=== PATIENT | male | born 1965 | race Caucasian/White ===

== ENCOUNTER 2017-10-19 21:31 | Emergency (ER) | payer MEDICARE, OTHER ==
[2017-10-20] MEDS: KETOROLAC 30 MG INJ IV (02:33)
[2017-10-20] MEDS: SOD CHLORIDE 0.9% 1,000 ML IV (02:34)
[2017-10-20] MEDS: predniSONE 20 MG TAB PO (02:40)
[2017-10-20 02:55] LABS: ADD MAN DIFF? NO
[2017-10-20 03:03] LABS: WHITE BLOOD COUNT 10.4 10^3/ul (4.8-10.8)
[2017-10-20 03:03] LABS: BASOPHILS % 0.3 % (0.0-2.0); EOSINOPHILS # 0.1 10^3/ul (0.0-0.5); EOSINOPHILS % 1.1 % (0.0-7.0); HEMATOCRIT 43.7 % (42.0-52.0); HEMOGLOBIN 14.1 g/dl (14.0-18.0); LYMPHOCYTES # 3.9 10^3/ul (0.8-2.9); LYMPHOCYTES % 37.1 % (15.0-51.0); MEAN CORPUSCULAR HEMOGLOBIN 27.1 pg (29.0-33.0); MEAN CORPUSCULAR HGB CONC 32.3 g/dl (32.0-37.0); MEAN CORPUSCULAR VOLUME 83.9 fl (82.0-101.0); MEAN PLATELET VOLUME 10.8 fl (7.4-10.4); MONOCYTE # 0.8 10^3/ul (0.3-0.9); MONOCYTES % 7.8 % (0.0-11.0); NEUTROPHIL # 5.5 10^3/ul (1.6-7.5); NEUTROPHILS % 52.6 % (39.0-77.0); PLATELET COUNT 216 10^3/UL (140-415); RED BLOOD COUNT 5.21 10^6/ul (4.70-6.10)
[2017-10-20 03:20] LABS: ALANINE AMINOTRANSFERASE 53 IU/L (13-69); ALBUMIN 3.8 g/dl (3.3-4.9); ALBUMIN/GLOBULIN RATIO 1.02; ALKALINE PHOSPHATASE 72 IU/L (42-121); ANION GAP 20 (8-16); ASPARTATE AMINO TRANSFERASE 27 IU/L (15-46); BILIRUBIN,INDIRECT 0.2 mg/dl (0-1.1); BILIRUBIN,TOTAL 0.2 mg/dl (0.2-1.3); BLOOD UREA NITROGEN 18 mg/dl (7-20); CALCIUM 9.4 mg/dl (8.4-10.2); CARBON DIOXIDE 31 mmol/L (21-31); CHLORIDE 103 mmol/L (97-110); CREATININE 0.82 mg/dl (0.61-1.24); GLUCOSE 95 mg/dl (70-220); POTASSIUM 4.3 mmol/L (3.5-5.1); TOTAL PROTEIN 7.5 g/dl (6.1-8.1)
[2017-10-20] MEDS: IOHEXOL 300MG/ML 150 ML BTL (03:38)
[2017-10-20] MEDS: SOD CHLORIDE 0.9% 100 ML (03:38)
[2017-10-20 03:42] LABS: SODIUM 145 mmol/L (135-144)
== END 2017-10-20 05:20 | disposition home or self-care (01) ==
LOC: FTE 21:31
DX: K11.20 Sialoadenitis, unspecified (principal); I10 Essential (primary) hypertension
CPT/HCPCS: 70491; 80053; 85025; 96374; 99285-25

== ENCOUNTER 2018-05-13 07:37 | Observation (INO) | payer MEDICARE, OTHER ==
[2018-05-13 08:10] LABS: ADD MAN DIFF? NO
[2018-05-13 08:12] LABS: BASOPHILS % 0.3 % (0.0-2.0); EOSINOPHILS # 0.1 10^3/ul (0.0-0.5); EOSINOPHILS % 0.5 % (0.0-7.0); HEMATOCRIT 42.4 % (42.0-52.0); HEMOGLOBIN 13.6 g/dl (14.0-18.0); IMMATURE GRANS #M 0.03 10^3/ul; IMMATURE GRANS % (M) 0.3 %; LYMPHOCYTES # 4.1 10^3/ul (0.8-2.9); LYMPHOCYTES % 34.2 % (15.0-51.0); MEAN CORPUSCULAR HEMOGLOBIN 27.5 pg (29.0-33.0); MEAN CORPUSCULAR HGB CONC 32.1 g/dl (32.0-37.0); MEAN CORPUSCULAR VOLUME 85.8 fl (82.0-101.0); MEAN PLATELET VOLUME 11.1 fl (7.4-10.4); MONOCYTE # 1.3 10^3/ul (0.3-0.9); MONOCYTES % 10.5 % (0.0-11.0); NEUTROPHIL # 6.5 10^3/ul (1.6-7.5); NEUTROPHILS % 54.2 % (39.0-77.0); PLATELET COUNT 180 10^3/UL (140-415); RED BLOOD COUNT 4.94 10^6/ul (4.70-6.10); RED CELL DISTRIBUTION WIDTH 15.6 % (11.5-14.5)
[2018-05-13] MEDS: SOD CHLORIDE 0.9% 1,000 ML IV (08:28)
[2018-05-13 08:29] LABS: ALANINE AMINOTRANSFERASE 19 IU/L (13-69); ALBUMIN 3.6 g/dl (3.3-4.9); ALBUMIN/GLOBULIN RATIO 1.12; ALKALINE PHOSPHATASE 51 IU/L (42-121); ANION GAP 12 (8-16); ASPARTATE AMINO TRANSFERASE 21 IU/L (15-46); BILIRUBIN,INDIRECT 0.4 mg/dl (0-1.1); BILIRUBIN,TOTAL 0.4 mg/dl (0.2-1.3); BLOOD UREA NITROGEN 11 mg/dl (7-20); CALCIUM 8.4 mg/dl (8.4-10.2); CARBON DIOXIDE 25 mmol/L (21-31); CHLORIDE 110 mmol/L (97-110); CHOL/HDL RATIO 3.7 RATIO; CHOLESTEROL 291 mg/dl (100-200); CREATININE 0.54 mg/dl (0.61-1.24); GLUCOSE 101 mg/dl (70-220); HDL CHOLESTEROL 77 mg/dl (28-71); LDL CHOLESTEROL,CALCULATED 150 mg/dl; POTASSIUM 3.6 mmol/L (3.5-5.1); SODIUM 143 mmol/L (135-144); TOTAL PROTEIN 6.8 g/dl (6.1-8.1); TRIGLYCERIDES 318 mg/dl (0-149)
[2018-05-13 08:33] LABS: ADD UMIC YES; INR 0.96; PROTIME 12.9 Sec (11.9-14.9); UR ASCORBIC ACID NEGATIVE (NEGATIVE); UR BACTERIA MANY /HPF (NONE SEEN); UR BILIRUBIN (Dip) NEGATIVE (NEGATIVE); UR BLOOD (Dip) NEGATIVE (NEGATIVE); UR CLARITY SLIGHTLY CLOUDY (CLEAR); UR COLOR YELLOW (YELLOW); UR GLUCOSE (Dip) NEGATIVE (NEGATIVE); UR KETONES (Dip) NEGATIVE (NEGATIVE); UR LEUKOCYTE ESTERASE (Dip) 2+ Leu/ul (NEGATIVE); UR MUCUS FEW /HPF (NONE SEEN); UR NITRITE (Dip) NEGATIVE (NEGATIVE); UR RBC 5 /HPF (0-5); UR SPECIFIC GRAVITY (Dip) 1.014 (1.003-1.030); UR TOTAL PROTEIN (Dip) NEGATIVE (NEGATIVE); UR UROBILINOGEN (Dip) NEGATIVE (NEGATIVE); UR WBC 75 /HPF (0-5)
[2018-05-13 08:34] LABS: PARTIAL THROMBOPLASTIN TIME 25.7 Sec (25.0-35.0)
[2018-05-13 08:39] LABS: TROPONIN-I < 0.010 ng/ml (0.000-0.120)
[2018-05-13 08:53] LABS: HEMOGLOBIN A1C 5.9 % (0-5.9)
[2018-05-13 08:54] LABS: AMPHETAMINE/METHAMPHETAMINE Negative (NEGATIVE); BARBITURATES Negative (NEGATIVE); CANNABINOIDS Negative (NEGATIVE); COCAINE Negative (NEGATIVE); OPIATES Negative (NEGATIVE)
[2018-05-13 08:57] LABS: BENZODIAZEPINES Positive (NEGATIVE)
[2018-05-13] MEDS ORDERED: ONDANSETRON 4 MG INJ IV ×2 (09:30→16:00)
[2018-05-13] MEDS ORDERED: ACETAMINOPHEN 325 MG TAB PO (09:30)
[2018-05-13] MEDS: ASPIRIN (EC) 81 MG TAB PO (09:54)
[2018-05-13] MEDS ORDERED: traMADol 50 MG TAB PO (16:00)
[2018-05-13] MEDS ORDERED: ACET/BUTAL/CAFF TAB PO (16:00)
[2018-05-13] MEDS ORDERED: ACETAMINOPHEN 650 MG SUPP PR (16:00)
[2018-05-13] MEDS ORDERED: NACL 0.9% 3 ML SYG IV (16:00)
[2018-05-13] MEDS ORDERED: BISACODYL 10 MG SUPP PR (16:00)
[2018-05-13] MEDS ORDERED: DOCUSATE SODIUM 100 MG CAP PO (16:00)
[2018-05-13] MEDS ORDERED: morphine 2 MG INJ IV (16:00)
[2018-05-13] MEDS ORDERED: MAGNESIUM HYDROXIDE 30ML CUP PO (16:00)
[2018-05-13] MEDS: CEFTRIAXONE 2 GM/50 ML (PMX) 50 ML IVPB (17:22)
[2018-05-13] MEDS: GABAPENTIN 100 MG CAP PO (20:51)
[2018-05-13] MEDS: ACETAMINOPHEN 325 MG TAB PO (20:52)
[2018-05-13] MEDS: HYDROCODONE/APAP (5/325) TAB PO (22:23)
[2018-05-14] MEDS: SUMATRIPTAN 50 MG TAB PO (00:42)
[2018-05-14] MEDS: PANTOPRAZOLE 40 MG INJ IV (05:08)
[2018-05-14 07:02] LABS: ADD MAN DIFF? NO
[2018-05-14 07:12] LABS: BASOPHILS % 0.3 % (0.0-2.0); EOSINOPHILS # 0.1 10^3/ul (0.0-0.5); HEMATOCRIT 42.2 % (42.0-52.0); HEMOGLOBIN 13.5 g/dl (14.0-18.0); IMMATURE GRANS #M 0.05 10^3/ul; IMMATURE GRANS % (M) 0.4 %; LYMPHOCYTES % 26.6 % (15.0-51.0); MEAN CORPUSCULAR HEMOGLOBIN 27.7 pg (29.0-33.0); MEAN CORPUSCULAR VOLUME 86.5 fl (82.0-101.0); MEAN PLATELET VOLUME 11.4 fl (7.4-10.4); MONOCYTE # 0.9 10^3/ul (0.3-0.9); MONOCYTES % 7.8 % (0.0-11.0); NEUTROPHIL # 7.3 10^3/ul (1.6-7.5); NEUTROPHILS % 63.9 % (39.0-77.0); PLATELET COUNT 162 10^3/UL (140-415); RED BLOOD COUNT 4.88 10^6/ul (4.70-6.10); RED CELL DISTRIBUTION WIDTH 15.7 % (11.5-14.5)
[2018-05-14 07:12] LABS: WHITE BLOOD COUNT 11.4 10^3/ul (4.8-10.8)
[2018-05-14 07:31] LABS: ALANINE AMINOTRANSFERASE 24 IU/L (13-69); ALBUMIN 3.3 g/dl (3.3-4.9); ALBUMIN/GLOBULIN RATIO 1.06; ALKALINE PHOSPHATASE 48 IU/L (42-121); ANION GAP 11 (8-16); ASPARTATE AMINO TRANSFERASE 18 IU/L (15-46); BILIRUBIN,INDIRECT 0.5 mg/dl (0-1.1); BILIRUBIN,TOTAL 0.5 mg/dl (0.2-1.3); BLOOD UREA NITROGEN 11 mg/dl (7-20); CALCIUM 9.1 mg/dl (8.4-10.2); CARBON DIOXIDE 27 mmol/L (21-31); CHLORIDE 107 mmol/L (97-110); CHOLESTEROL 274 mg/dl (100-200); CREATININE 0.54 mg/dl (0.61-1.24); GLUCOSE 89 mg/dl (70-220); HDL CHOLESTEROL 54 mg/dl (28-71); MAGNESIUM 1.8 mg/dl (1.7-2.5); PHOSPHORUS 3.2 mg/dl (2.5-4.9); POTASSIUM 3.8 mmol/L (3.5-5.1); SODIUM 141 mmol/L (135-144); TOTAL PROTEIN 6.4 g/dl (6.1-8.1)
[2018-05-14 07:38] LABS: LDL CHOLESTEROL,CALCULATED 98 mg/dl; TRIGLYCERIDES 609 mg/dl (0-149)
[2018-05-14 07:45] LABS: HEMOGLOBIN A1C 5.9 % (0-5.9)
[2018-05-14 07:48] LABS: FREE THYROXINE INDEX (Calc) 1.74 ug/ml (0.65-3.89); T3 UPTAKE 40.5 % (23.5-40.5); T4 (THYROXINE) 4.3 ug/dl (5.5-11.0)
[2018-05-14] MEDS: ASPIRIN 81 MG TAB PO (08:06)
[2018-05-14] MEDS: DILTIAZEM (CD) 240 MG CAP PO (08:07)
[2018-05-14] MEDS: ALLOPURINOL 300 MG TAB PO (08:07)
[2018-05-14] MEDS: LOSARTAN 50 MG TAB PO (08:09)
[2018-05-14] MEDS: SUMATRIPTAN 6 MG/0.5 ML INJ SC (14:35)
== END 2018-05-14 17:08 | disposition home or self-care (01) ==
LOC: E/R 07:37 → TEL 10:51
DX: R20.2 Paresthesia of skin (principal); E78.1 Pure hyperglyceridemia; I10 Essential (primary) hypertension; M06.9 Rheumatoid arthritis, unspecified; M10.9 Gout, unspecified
CPT/HCPCS: 36415; 70450; 70551; 71045; 80053; 80061; 80307; 81001; 82962; 83036; 83735; 84100; 84436; 84443; 84479; 84484; 85025; 85610; 85730; 86850; 86900; 86901; 87086; 93005; 93306; 93880; 96360; 96361; 97162; 99285-25; G0378

== ENCOUNTER 2019-02-02 11:19 | Emergency (ER) | payer MEDICARE, OTHER ==
[2019-02-02] MEDS: DIPHENHYDRAMINE 50 MG INJ IV (12:33)
[2019-02-02] MEDS: PROCHLORPERAZINE 10 MG INJ IV (12:34)
[2019-02-02] MEDS: HYDROmorphONE 1 MG/ML SYG IV (12:35)
== END 2019-02-02 14:52 | disposition home or self-care (01) ==
LOC: E/R 11:19
DX: G43.909 Migraine, unspecified, not intractable, without status migrainosus (principal); K64.4 Residual hemorrhoidal skin tags; I10 Essential (primary) hypertension; R40.2142 Coma scale, eyes open, spontaneous, at arrival to emergency department; R40.2252 Coma scale, best verbal response, oriented, at arrival to emergency department; R40.2362 Coma scale, best motor response, obeys commands, at arrival to emergency department; Z79.82 Long term (current) use of aspirin
CPT/HCPCS: 96374; 96375; 99284-25